=== PATIENT | male | born 1960 | race African-American/Black ===

== ENCOUNTER 2022-10-08 11:14 | Emergency (ER) | payer MEDICARE, MEDICAID ==
[~2022-10-08] VITALS: Ht 170.2 cm; Wt 97.0 kg
[2022-10-08 11:26] VITALS: BP 156/75
[2022-10-08] MEDS ORDERED: ACET-2708 MT (15:51)
[2022-10-08] MEDS ORDERED: IBUP-2028 MT (15:51)
[2022-10-08] MEDS ORDERED: LIDO700A30 TP (15:51)
== END 2022-10-08 16:24 | disposition home or self-care (01) ==
LOC: ER 11:14
DX: M54.2 Cervicalgia (principal); M54.9 Dorsalgia, unspecified; V49.49XA Driver injured in collision with other motor vehicles in traffic accident, initial encounter; Y93.89 Activity, other specified; Y92.89 Other specified places as the place of occurrence of the external cause; Y99.8 Other external cause status
CPT/HCPCS: 99281; 99283